=== PATIENT | female | born 1960 | race Caucasian/White ===

== ENCOUNTER → 2020-09-04 17:22 | Outpatient (CLI) | payer OTHER | END | disposition home or self-care (01) | LOC: D.LABREF 17:22 | PROVIDERS: ATTEND Orthopaedic Surgery | DX: M16.11 Unilateral primary osteoarthritis, right hip (principal) ==

== ENCOUNTER 2020-09-06 10:54 | Observation (INO) | payer OTHER ==
[~2020-09-06] VITALS: Ht 170.2 cm; Wt 90.0 kg
[2020-10-18 13:13] LABS: BILIRUBIN NEGATIVE (NEGATIVE); KETONE NEGATIVE (NEGATIVE); NITRITE NEGATIVE (NEGATIVE); UROBILINOGEN NORMAL mg/dL (< 2)
[2020-10-18 13:15] LABS: BACTERIA FEW HPF (NONE SEEN); SQUAMOUS EPITHELIAL RARE HPF (0-4); WHITE CELLS - URINE OCC HPF (0-4)
[2020-10-18 13:19] LABS: EOSINOPHILS 2.6 % (0-7); HEMATOCRIT 38.5 % (36.0-48.0); IMMATURE GRANULOCYTES 0.2 % (0-5); LYMPHOCYTE ABS# 1.98 10x3/uL (1.18-3.74); LYMPHOCYTES 24.2 % (15-50); MCH 29.9 pg (26.0-34.0); MCHC 31.2 g/dL (31.0-37.0); MEAN PLATELET VOLUME 10.6 fL (7.4-10.4); MONOCYTES 7.1 % (2-11); NEUTROPHIL ABS# 5.31 10x3/uL (1.56-6.13); NEUTROPHILS 64.9 % (40-80); PLATELET COUNT 354 10x3/uL (130-400); RBC 4.01 10x6/uL (4.00-5.40); RDW 13.3 % (11.5-14.5); WBC 8.2 10x3/uL (4.8-10.8)
[2020-10-18] MEDS ORDERED: SINGULAIR10 MG PO (13:25)
[2020-10-18] MEDS ORDERED: TIROSINT75 MCG PO (13:25)
[2020-10-18] MEDS ORDERED: GALZIN50 MG PO (13:26)
[2020-10-18] MEDS ORDERED: MAGNESIUM OXID250 MG PO (13:26)
[2020-10-18 13:31] LABS: ANION GAP 10.9 mmol/L (8-16); CALCIUM 8.8 mg/dL (8.5-10.1); CARBON DIOXIDE 31.7 mmol/L (21.0-32.0); CREATININE - SERUM 0.9 mg/dL (0.6-1.3); POTASSIUM - SERUM 4.6 mmol/L (3.5-5.1)
[2020-10-18 13:36] LABS: APTT 27.2 SECONDS (22.8-39.4); INR 1.01 (0.85-1.17); PROTIME 12.3 SECONDS (11.6-15.0)
[2020-10-24] VITALS (8 sets, daily range): BP systolic 91–153; BP diastolic 66–94; Ht 170.2 cm; Wt 90.0 kg
--- NOTE | 2020-10-24 11:10 | NUR ---
SCOPE PATCH BEHIND LT EAR ON ADMIT
--- NOTE | 2020-10-24 11:10 | NUR ---
PT. REQUESTED NO NARCOTIS IN RR FOR PAIN HAD TROUBLE WAKING LAST SURGERY
--- NOTE | 2020-10-24 11:35 | NUR ---
RECEIVED TO ROOM 1212 VIA BED FROM PACU. ALERT AND ORIENTED X 3. SKIN IS INTACT WITHOUT REDNESS EXCEPT INCISION TO RIGHT GROIN WHICH HAS A DRY INTACT DRESSING IN PLACE. IV TO RIGHT WRIST PATENT WITHOUT REDNESS AT INSERTION SITE. AT BEDSIDE. DENIES NEEDS.
--- NOTE | 2020-10-24 11:45 | NUR ---
RECEIVED TO ROOM 1212 VIA BED FROM PACU. A/O X3. REQUESTED FOOD FOR SELF AND IMMEDIATELY. WILL CALL KITCHEN. DRESSING TO RIGHT GROIN AREA DRY AND INTACT. AT BEDSIDE.
--- NOTE | 2020-10-24 11:45 | NUR ---
RECEIVED TO ROOM 1212 VIA BED FROM PACU. A/O X 3. AT BEDSIDE. REQUESTED FOOD FOR HERSELF AND AT THIS TIME. ORDER SENT TO KITCHEN. DRESSING TO RIGHT GROIN AREA DRY AND INTACT. NO FURTHER NEEDS NOTED.
--- NOTE | 2020-10-24 11:57 | NUR ---
PT OPERTIVE LEG CLEANSED WITH HIBECLENS AND ALCOHOL PRIOR TO PREP. PREPPED WITH CHLORAPREP X2 FROM ABOVE HIP TO CALF CIRCUMFERENTIALLY. RN IN STERILE ATTIRE TO PREP. PLASMA BLADE SET TO 6/8 GROUNDING PAD LEFT FLANK LOT#[id number] EXP 03/06/2022 IN AND OUT CATH AT END OF PROCEDURE. 250 ML URINE OUTPUT.
--- NOTE | 2020-10-24 15:32 | NUR ---
UP TO BR WITH ONE PERSON MIN ASSIST. VOIDED 300cc CLEAR YELLOW URINE IWTHOUT DIFFICULTY. TELLO CARE PER SELF. AMBULATED IN HALLWAY WITH PT USING RW. REPORTS NO INCREASED PAIN WITH ACTIVITY.
--- NOTE | 2020-10-24 18:23 | MORECARE ---
CASE MANAGEMENT DISCHARGE SUMMARY PATIENT: BERNICE BLUNT UNIT: [id number] ADM DATE: 10/24/20 AGE: 60 : 56 SEX: F ROOM/BED: D.1212 AUTHOR: ASHTYN,DOC PHYSICIAN: REFERRING PHYSICIAN: MANSOOR WEINSTEIN DO DATE OF SERVICE: 10/24/20 Case Management Discharge Planning Summary COMMENTS ENTERED DATE: 10/24/20 18:13 CT COMMENT TYPE: Discharge Planning REVIEWER: Aki Navarro CM met with patient to complete DC plan and to evaluate needs. Patient lives independently with her , Peyman Blunt, . Patient stated that their home is safe and has electricity and running water. Patient stated that she has no problems paying for medications and she fills her medications at [facility]. Patient stated her primary care physician is Dr. Cordero. At discharge, the patient plans to return home and feels this is a safe discharge. CM discussed availability of home health, rehab services, and medical equipment. Patient declined HHS, SNF, IPR, and DME. Patient would like outpatient therapy with [facility]. NURIA signed and placed in chart. Patent stated that she has a walker, wheelchair, and bedside commode at home. Patient voiced no other needs at this time and is satisfied with DC plan. Transportation provider at discharge will be with her , Peyman. CM will continue to follow and will assist as needed with dc plans/needs DCP REVIEW SUMMARY ANTICIPATED D/C DATE: EXPECTED LOS : CASE STATUS: DCP Initiated INITIAL REVIEW: 10/24/2020 INITIAL REVIEWER: Aki Navarro FINAL DISCHARGE DISPOSITION: : FINAL REVIEWER: FINAL REVIEW DATE: DCP Focus Questions & Answers DCP Evaluation QUESTION: ANSWER Patient and/or caregiver agree upon recommended discharge plan? : Yes Family / Caregiver's ability to cope with chronic illness: : a. Adequate (ability to meet patient's medical needs, ensures patient attends medical appts.) Patient's current cognitive status: : *Oriented to person, place, situation, time and present Patient's ability to cope with chronic illness : d. No chronic illness Patient gives permission to discuss discharge plans with: (name, relationship and number) : , Peyman Blunt, Does the patient have the ability to pay for or attain post discharge needs / services? : Yes Functional screen assessment: : Basic needs can adequately be met by self Family / Caregiver's ability to cope with chronic illness: : a. Adequate (ability to meet patient's medical needs, ensures patient attends medical appts.) Physical Status: : Independent with ADL's Equipment needed for post hospitalization: : None Is there a likelihood that the patient will require additional services to return to the preadmission environment? : Yes Living Arrangements: : Home with Spouse/Significant Other Patient with capacity for self-care or can be cared for in same environment as prior to hospitalization? : Yes Baseline cognitive status: : *Oriented to person, place, situation, time and present Physical environment modification needed / anticipated for discharge: : No Medication Management: : Patient states can read and understand medication labels Medication Management: : Patient states can afford medications Pharmacy name(s): : [facility] Does Patient have transportation to get home and to follow-up medical appointments when discharged from the hospital? : Yes Would patient like to participate in any Care Coordination programs (if applicable): : Not applicable Does the patient have electricity at home? : Yes Does the patient have running water in their house? : Yes Equipment in use: : Wheelchair Equipment in use: : Walker - Rolling Equipment in use: : Bedside Commode Mental health screen: : No mental health history DCP Re-evaluation QUESTION: ANSWER Would patient like to participate in any Care Coordination programs (if applicable): : Not applicable PATIENT: BERNICE BLUNT ENCOUNTER: [id number] MEDICAL RECORD#: [id number] ADMISSION DATE: 10/24/2020 DISCHARGE DATE: ATTENDING MD: MANSOOR LE : AGE: 60 MARITAL STATUS: M DC PLAN ID: [id number] FACILITY: [facility] PRINTED ON: 10/24/20 18:22 CT All edits/amendments must be made on the electronic document DICTATION DATE: 10/24/201821 BURLING AND JOINING SUPERVISOR: RANDY 10/24/201821 RPT#: [id number] DC DATE: STATUS: ADM IN [facility] [address] [place] [address] END OF REPORT
--- NOTE | 2020-10-24 19:24 | NUR ---
ATE MOST OF SUPPER. DENIES NEEDS. NO CHANGES NOTED. UP TO BR WITH ONE PERSON MIN ASSSIST. VOIDED CLEAR YELLOW URINE WITHOUT DIFFICULTY.
--- NOTE | 2020-10-24 20:00 | NUR ---
ALERT RESTING IN BED, DENIES PAIN OR NEEDS AT THIS TIME, SEE SHIFT ASSESSMENT, CALL LIGHT IN REACH
[2020-10-25] VITALS: BP 110/50
[2020-10-25 04:30] VITALS: BP 102/49; BP 112/64
--- NOTE | 2020-10-25 06:50 | OP ---
PATIENT NAME: BERNICE BLUNT MEDICAL RECORD: [id number] :56 LOCATION:D. D.1212 ADMISSION DATE:10/24/20 SURGEON: ALEJANDRO WEINSTEIN DO DATE OF OPERATION: 10/24/2020 PROCEDURE PERFORMED: Right total hip arthroplasty. PREOPERATIVE DIAGNOSIS: Right hip osteoarthritis. POSTOPERATIVE DIAGNOSIS: Right hip osteoarthritis. INDICATIONS: Ms. Blunt is a 60-year-old female who had his right hip done for quite some time. She has gotten to a point where she can barely walk and give her pain every day that affects her activities of daily living. She was tired of dealing with her pain and wanted something done surgically. She was aware of the risks of this including infection, bleeding, fracture, damage to nerves and vessels, need for further surgery, failure of implants, blood clots and even and she signed the consent. SURGEON: Alejandro Weinstein DO DESCRIPTION OF PROCEDURE: The patient received a spinal in the preoperative area by anesthesia and a block. She was then taken to the operative suite, sedated and LMA was placed. She was given 2 grams, Ancef 80 mg of gentamicin, and a gram of TXA. She was then placed on the [place] table and the right hip was prepped and draped in sterile fashion. A timeout was performed. Everyone was in agreement with correct side, site, patient and procedure and then made an incision over the tensor fasciae latae muscle. Made careful dissection down to it, opened up the rectus interval and encountered the ascending branch of the lateral femoral circumflex, taken the rectus medially and tensor fascia nima laterally. I tied off the ascending branch of lateral femoral circumflex, coagulated and cut it. I then went to the capsule, put the Hohmanns on either side, medial and lateral to the capsule. Opened up the capsule and tagged it and then put the Hohmanns intracapsularly. She had some large loose bodies there, 3 of them then I removed with a rongeur. We then got an x-ray to make sure the neck cut would be good. I then cut the neck and removed the femoral head. I then put the Charnley in and remove the labrum as well as the pulvinar and reamed, reamed up to a 52 cup and impacted in a 52 cup after irrigating and then put in the liner under x-ray and ensured that the liner of the cup was then solidly with a Delia. I then exposed the femur, put in the femoral elevator and then used the canal finder and isaccie cutter, and then broached up to a 13, 13 fit very well. I then put on a -6 neck and head and reduced it, it was equal length to the left side and very good position. No fractures were seen and the stem fit very well. We then removed the trials. I dislocated the hip and removed the trials, irrigated and impacted a 13 stem and a -6 dual mobility neck and head, I reduced the hip. X-rays were taken and no fracture was seen in the femur. The stem fit very well and had equal to the left side on AP pelvis. I then irrigated with 10% povidone-iodine 500 mL normal saline solution and irrigated out with a liter of normal saline and then put in Sarah, vancomycin and tobramycin, then closed the tensor fascia nima fascia with #1 Vicryl in a [id number] and then a running locking stitch. Clayton Cox, certified surgical first student closed the skin with 2-0 Vicryl in inverted interrupted fashion and 4-0 Monocryl in the skin. Prineo glue on the skin and then once that dried, dressed with Telfa and Tegaderm. She was then awakened and taken to recovery in stable condition. OPERATIVE REPORT [id number] BERNICE BLUNT BLOOD LOSS: Approximately 300 mL. COMPLICATIONS: None. TRANSINT:[id number] Voice Confirmation ID: [id number] DOCUMENT ID: [id number] ALEJANDRO WEINSTEIN DO at 0650 CC: [id number] DICTATION DATE: 10/24/201111 MOTION DESIGNER: 10/24/20 1814 ADM IN [facility] [id number] [place] [address]
--- NOTE | 2020-10-25 07:20 | NUR ---
PT RESTING QUIETLY IN BED. RESP EVEN AND UNLABORED. PT REPORTS PAIN 5/10 AT THIS TIME. IV TO LEFT FOREARM WITH 1/2 NS @ 50ML/HR INFUSING VIA PUMP. SITE WITHOUT REDNESS OR EDEMA. DRESSING TO RIGHT HIP C/D/I. DENIES FURTHER NEEDS AT THIS TIME. CL WITHIN REACH. ENCOURAGED TO CALL WITH NEEDS. CONTINUE POC
[2020-10-25 07:36] LABS: BASOPHILS 0.6 % (0-2); EOSINOPHILS 1.5 % (0-7); HEMATOCRIT 28.8 % (36.0-48.0); IMMATURE GRANULOCYTES 0.1 % (0-5); LYMPHOCYTE ABS# 1.27 10x3/uL (1.18-3.74); MCH 29.5 pg (26.0-34.0); MCHC 31.3 g/dL (31.0-37.0); MCV 94.4 fL (80.0-100.0); MEAN PLATELET VOLUME 9.9 fL (7.4-10.4); MONOCYTES 12.6 % (2-11); NEUTROPHIL ABS# 4.41 10x3/uL (1.56-6.13); NEUTROPHILS 66.2 % (40-80); RBC 3.05 10x6/uL (4.00-5.40); RDW 13.5 % (11.5-14.5); WBC 6.7 10x3/uL (4.8-10.8)
[2020-10-25 07:40] LABS: PLATELET COUNT 272 10x3/uL (130-400)
[2020-10-25 08:00] VITALS: BP 113/54
[2020-10-25 08:02] LABS: ALBUMIN 2.8 g/dL (3.4-5.0); ALKALINE PHOSPHATASE 131 U/L (30-120); ALT (SGPT) 48 U/L (10-68); BILIRUBIN - TOTAL 0.29 mg/dL (0.2-1.3); CALC OSMOLALITY 281 mosm/kg (275-300); CALCIUM 8.1 mg/dL (8.5-10.1); CARBON DIOXIDE 29.9 mmol/L (21.0-32.0); CHLORIDE - SERUM 105 mmol/L (98-107); CREATININE - SERUM 0.8 mg/dL (0.6-1.3); MAGNESIUM - SERUM 2.1 mg/dL (1.8-2.4); POTASSIUM - SERUM 3.9 mmol/L (3.5-5.1); SODIUM 141 mmol/L (136-145); UREA NITROGEN 14 mg/dL (7-18); eGFR NON AFRICAN AMERICAN 77 mL/min (90-120)
[2020-10-25 08:04] LABS: GLUCOSE 97 mg/dL (74-106)
[2020-10-25 08:06] VITALS: BP 113/54
[2020-10-25 11:25] VITALS: BP 124/58
[2020-10-25 12:00] VITALS: BP 124/58
[2020-10-25] MEDS ORDERED: BAYER CHEWABLE81 MG PO (12:43)
[2020-10-25] MEDS ORDERED: VISTARIL50 MG PO (12:43)
[2020-10-25] MEDS ORDERED: ULTRAM50 MG PO (12:43)
[2020-10-25] MEDS ORDERED: TORADOL10 MG PO (12:43)
--- NOTE | 2020-10-25 14:41 | MORECARE ---
CASE MANAGEMENT DISCHARGE SUMMARY PATIENT: BERNICE BLUNT UNIT: [id number] ADM DATE: 10/24/20 AGE: 60 : 56 SEX: F ROOM/BED: D.1212 AUTHOR: ASHTYN,CYNTHIA PHYSICIAN: REFERRING PHYSICIAN: MANSOOR WEINSTEIN DO DATE OF SERVICE: 10/25/20 Case Management Discharge Planning Summary COMMENTS ENTERED DATE: 10/25/20 14:30 CT COMMENT TYPE: Discharge Planning REVIEWER: Mikayla Lucas PATIENT APPOINTMENT IS SET UP FOR FRIDAY 10AM AT [facility] ON [address]. PATIENT TO DC TO HOME TODAY. CM TO FOLLOW AND ASSIST NEEDED. ENTERED DATE: 10/24/20 18:13 CT COMMENT TYPE: Discharge Planning REVIEWER: Aki Navarro CM met with patient to complete DC plan and to evaluate needs. Patient lives independently with her , Peyman Blunt, . Patient stated that their home is safe and has electricity and running water. Patient stated that she has no problems paying for medications and she fills her medications at [facility]. Patient stated her primary care physician is Dr. Cordero. At discharge, the patient plans to return home and feels this is a safe discharge. CM discussed availability of home health, rehab services, and medical equipment. Patient declined HHS, SNF, IPR, and DME. Patient would like outpatient therapy with [facility]. NURIA signed and placed in chart. Patent stated that she has a walker, wheelchair, and bedside commode at home. Patient voiced no other needs at this time and is satisfied with DC plan. Transportation provider at discharge will be with her , Peyman. CM will continue to follow and will assist as needed with dc plans/needs DCP REVIEW SUMMARY ANTICIPATED D/C DATE: EXPECTED LOS : CASE STATUS: DCP Initiated INITIAL REVIEW: 10/24/2020 INITIAL REVIEWER: Aki Navarro FINAL DISCHARGE DISPOSITION: : FINAL REVIEWER: FINAL REVIEW DATE: DCP Focus Questions & Answers DCP Evaluation QUESTION: ANSWER Patient and/or caregiver agree upon recommended discharge plan? : Yes Family / Caregiver's ability to cope with chronic illness: : a. Adequate (ability to meet patient's medical needs, ensures patient attends medical appts.) Patient's current cognitive status: : *Oriented to person, place, situation, time and present Patient's ability to cope with chronic illness : d. No chronic illness Patient gives permission to discuss discharge plans with: (name, relationship and number) : , Peyman Blunt, Does the patient have the ability to pay for or attain post discharge needs / services? : Yes Functional screen assessment: : Basic needs can adequately be met by self Family / Caregiver's ability to cope with chronic illness: : a. Adequate (ability to meet patient's medical needs, ensures patient attends medical appts.) Physical Status: : Independent with ADL's Equipment needed for post hospitalization: : None Is there a likelihood that the patient will require additional services to return to the preadmission environment? : Yes Living Arrangements: : Home with Spouse/Significant Other Patient with capacity for self-care or can be cared for in same environment as prior to hospitalization? : Yes Baseline cognitive status: : *Oriented to person, place, situation, time and present Physical environment modification needed / anticipated for discharge: : No Medication Management: : Patient states can read and understand medication labels Medication Management: : Patient states can afford medications Pharmacy name(s): : [facility] Does Patient have transportation to get home and to follow-up medical appointments when discharged from the hospital? : Yes Would patient like to participate in any Care Coordination programs (if applicable): : Not applicable Does the patient have electricity at home? : Yes Does the patient have running water in their house? : Yes Equipment in use: : Wheelchair Equipment in use: : Walker - Rolling Equipment in use: : Bedside Commode Mental health screen: : No mental health history DCP Re-evaluation QUESTION: ANSWER Would patient like to participate in any Care Coordination programs (if applicable): : Not applicable PATIENT: BERNICE BLUNT ENCOUNTER: [id number] MEDICAL RECORD#: [id number] ADMISSION DATE: 10/24/2020 DISCHARGE DATE: ATTENDING MD: MANSOOR LE : AGE: 60 MARITAL STATUS: M DC PLAN ID: [id number] FACILITY: [facility] PRINTED ON: 10/25/20 14:41 CT All edits/amendments must be made on the electronic document DICTATION DATE: 10/25/201440 FINAL INSPECTOR MOTORCYLES: RANDY 10/25/201440 RPT#: [id number] DC DATE: STATUS: ADM IN [facility] [address] [place] [address] END OF REPORT
--- NOTE | 2020-10-25 16:49 | MORECARE ---
CASE MANAGEMENT DISCHARGE SUMMARY PATIENT: BERNICE BLUNT UNIT: [id number] ADM DATE: 10/24/20 AGE: 60 : 56 SEX: F ROOM/BED: D.1212 AUTHOR: ASHTYN,CYNTHIA PHYSICIAN: REFERRING PHYSICIAN: MANSOOR WEINSTEIN DO DATE OF SERVICE: 10/25/20 Case Management Discharge Planning Summary COMMENTS ENTERED DATE: 10/25/20 14:30 CT COMMENT TYPE: Discharge Planning REVIEWER: Mikayla Lucas PATIENT APPOINTMENT IS SET UP FOR FRIDAY 10AM AT [facility] [address]. PATIENT TO DC TO HOME TODAY. CM TO FOLLOW AND ASSIST NEEDED. ENTERED DATE: 10/24/20 18:13 CT COMMENT TYPE: Discharge Planning REVIEWER: Aki Navarro CM met with patient to complete DC plan and to evaluate needs. Patient lives independently with her , Peyman Blunt, . Patient stated that their home is safe and has electricity and running water. Patient stated that she has no problems paying for medications and she fills her medications at [facility]. Patient stated her primary care physician is Dr. Cordero. At discharge, the patient plans to return home and feels this is a safe discharge. CM discussed availability of home health, rehab services, and medical equipment. Patient declined HHS, SNF, IPR, and DME. Patient would like outpatient therapy with [facility]. NURIA signed and placed in chart. Patent stated that she has a walker, wheelchair, and bedside commode at home. Patient voiced no other needs at this time and is satisfied with DC plan. Transportation provider at discharge will be with her , Peyman. CM will continue to follow and will assist as needed with dc plans/needs DCP REVIEW SUMMARY ANTICIPATED D/C DATE: EXPECTED LOS : CASE STATUS: DCP Initiated INITIAL REVIEW: 10/24/2020 INITIAL REVIEWER: Aki Navarro FINAL DISCHARGE DISPOSITION: : FINAL REVIEWER: FINAL REVIEW DATE: DCP Focus Questions & Answers DCP Evaluation QUESTION: ANSWER Patient and/or caregiver agree upon recommended discharge plan? : Yes Family / Caregiver's ability to cope with chronic illness: : a. Adequate (ability to meet patient's medical needs, ensures patient attends medical appts.) Patient's current cognitive status: : *Oriented to person, place, situation, time and present Patient's ability to cope with chronic illness : d. No chronic illness Patient gives permission to discuss discharge plans with: (name, relationship and number) : , Peyman Blunt, Does the patient have the ability to pay for or attain post discharge needs / services? : Yes Functional screen assessment: : Basic needs can adequately be met by self Family / Caregiver's ability to cope with chronic illness: : a. Adequate (ability to meet patient's medical needs, ensures patient attends medical appts.) Physical Status: : Independent with ADL's Equipment needed for post hospitalization: : None Is there a likelihood that the patient will require additional services to return to the preadmission environment? : Yes Living Arrangements: : Home with Spouse/Significant Other Patient with capacity for self-care or can be cared for in same environment as prior to hospitalization? : Yes Baseline cognitive status: : *Oriented to person, place, situation, time and present Physical environment modification needed / anticipated for discharge: : No Medication Management: : Patient states can read and understand medication labels Medication Management: : Patient states can afford medications Pharmacy name(s): : [facility] Does Patient have transportation to get home and to follow-up medical appointments when discharged from the hospital? : Yes Would patient like to participate in any Care Coordination programs (if applicable): : Not applicable Does the patient have electricity at home? : Yes Does the patient have running water in their house? : Yes Equipment in use: : Wheelchair Equipment in use: : Walker - Rolling Equipment in use: : Bedside Commode Mental health screen: : No mental health history DCP Re-evaluation QUESTION: ANSWER Would patient like to participate in any Care Coordination programs (if applicable): : Not applicable PATIENT: BERNICE BLUNT ENCOUNTER: [id number] MEDICAL RECORD#: [id number] ADMISSION DATE: 10/24/2020 DISCHARGE DATE: 10/25/2020 ATTENDING MD: MANSOOR LE : AGE: 60 MARITAL STATUS: M DC PLAN ID: [id number] FACILITY: [facility] PRINTED ON: 10/25/20 16:49 CT All edits/amendments must be made on the electronic document DICTATION DATE: 10/25/201648 CITY PLANNING TEACHER: RANDY 10/25/201648 RPT#: [id number] DC DATE:10/25/20 STATUS: DIS IN [facility] [address] [facility] [place] [address] END OF REPORT
== END 2020-10-25 16:10 | disposition home or self-care (01) ==
LOC: OBSVTIME 10-24 06:01 → D.M3 10-24 06:01 → D.SDCHOLD 10-24 06:01 → EDSTATUS 10-24 07:00 → D.SDCHOLD 10-24 07:00 → D.OPS 10-24 07:00 → D.SDCHOLD 10-24 08:00 → D.M3 10-24 10:57
PROVIDERS: Family Medicine; ADMIT Orthopaedic Surgery; ATTEND Orthopaedic Surgery
DX: M16.11 Unilateral primary osteoarthritis, right hip (principal); I10 Essential (primary) hypertension; E03.9 Hypothyroidism, unspecified; D62 Acute posthemorrhagic anemia

== ENCOUNTER → 2020-11-06 11:08 | Outpatient (CLI) | payer OTHER ==
[2020-10-24 11:47] VITALS: BMI 31.1
[~2020-11-06 11:08] MED LIST: BAYER CHEWABLE81 MG PO; GALZIN50 MG PO; MAGNESIUM OXID250 MG PO; SINGULAIR10 MG PO; TIROSINT75 MCG PO; TORADOL10 MG PO; ULTRAM50 MG PO; VISTARIL50 MG PO
== END | disposition home or self-care (01) ==
LOC: D.US 11:00
PROVIDERS: ATTEND Orthopaedic Surgery
DX: R60.0 Localized edema (principal)